=== PATIENT | female | born 2000 | race Asian ===

== ENCOUNTER 2020-03-09 13:30 | Observation (INO) | payer OTHER, MEDICAID ==
[~2020-03-09] VITALS: Ht 154.9 cm; Wt 68.5 kg
== END 2020-03-09 14:35 | disposition home or self-care (01) ==
LOC: MLD 13:30
PROVIDERS: ADMIT Obstetrics & Gynecology; ATTEND Obstetrics & Gynecology
DX: O28.8 Other abnormal findings on antenatal screening of mother (principal); Z3A.38 38 weeks gestation of pregnancy
CPT/HCPCS: 59025; 81000; G0378